=== PATIENT | male | born 1950 | race Two or more races ===

== ENCOUNTER 2025-07-11 23:27 | Inpatient (IN) | payer OTHER, SELFPAY ==
--- NOTE | 2025-07-11 | ECG_ITS ---
Test Reason : CP Blood Pressure : */* mmHG Vent. Rate : 155 BPM Atrial Rate : * BPM P-R Int : * ms QRS Dur : 74 ms QT Int : 290 ms P-R-T Axes : * 40 151 degrees QTcB Int : [address] depression, consider subendocardial injury Nonspecific T wave abnormality Abnormal ECG No previous ECGs available Referred By: Generic ED Physician Electronically Signed By: Thang Yoo
[2025-07-11 23:33] VITALS: BP 120/84; BP 151/80; PULSE 155; PULSE 158; RESP 12; TEMP 36.8; O2SAT 97; O2SAT 98; BMI 49.4
[2025-07-11 23:54] LABS: MANUAL DIFF FLAG NO
[2025-07-11] MEDS: Adenosine 6 MG/2 ML VIAL IVPUSH (23:55)
[2025-07-11 23:56] LABS: Hematocrit 28.1 % (42.0-52.0); Hemoglobin 9.5 g/dl (14.0-18.0); Imm Gran Abs Auto 0.02 X10*3/uL (0.00-0.03); Imm Gran Pct Auto 0.4 % (0.0-0.4); Lymphocytes Absolute Auto 0.5 X10*3/uL (1.2-4.9); Mean Corpuscular HGB Conc 33.8 g/dl (31.0-36.0); Mean Corpuscular Hemoglobin 29.4 pg (27.0-33.0); Mean Corpuscular Volume 87.0 fL (80.0-98.0); NRBC Abs Auto 0.000 X10*3/uL (0.0-0.012); NRBC Pct Auto 0.0 /100WBC (0.0-0.2); Platelet Count 121 X10*3/uL (160-400); Red Blood Count 3.23 X10*6/uL (4.60-5.80); White Blood Count 5.5 X10*3/uL (4.8-10.8)
[2025-07-12] VITALS (20 sets, daily range): BP systolic 108–152; BP diastolic 22–79; PULSE 49–148; RESP 16–20; TEMP 36.4–36.9; O2SAT 97–100; BMI 22.1; BMI 21.7
[2025-07-12] LABS: INTERNATIONAL NORM RATIO 1.0 (0.9-1.1); Prothrombin Time 11.5 SEC (10.9-12.4)
--- NOTE | 2025-07-12 | ECG_ITS ---
Test Reason : repeat Blood Pressure : */* mmHG Vent. Rate : 79 BPM Atrial Rate : 79 BPM P-R Int : 158 ms QRS Dur : 80 ms QT Int : 398 ms P-R-T Axes : -10 3 -24 degrees QTcB Int : 456 ms Normal sinus rhythm Normal ECG When compared with ECG of 12-Jul-2025 03:53, Non-specific change in ST segment in Inferior leads T wave inversion now evident in Inferior leads Referred By: Todd Barrientos Electronically Signed By: PORTILLO PATEL MD
--- NOTE | 2025-07-12 | ECG_ITS ---
Test Reason : RHYTHM CHANGE Blood Pressure : */* mmHG Vent. Rate : 75 BPM Atrial Rate : 75 BPM P-R Int : 158 ms QRS Dur : 80 ms QT Int : 402 ms P-R-T Axes : 61 46 79 degrees QTcB Int : 448 ms Normal sinus rhythm Normal ECG When compared with ECG of 12-Jul-2025 00:34, Sinus rhythm has replaced Atrial flutter Non-specific change in ST segment in Inferior leads Referred By: Evi Trinh Electronically Signed By: Thang Yoo
[2025-07-12 00:15] LABS: Calcium 9.2 mg/dL (8.4-10.2)
[2025-07-12 00:16] LABS: Alanine Aminotransferase 29 U/L (0-40); Albumin Level 4.5 g/dL (3.5-5.0); Alkaline Phosphatase 164 U/L (39-117); Anion Gap 16 (12-20); Aspartate Amino Transferase 30 U/L (5-37); B Type Natriuretic Peptide 252 pg/mL (<100); Blood Urea Nitrogen 26 mg/dL (9-16); Carbon Dioxide 22 mmol/L (22-29); Chloride 106 mmol/L (96-108); Creatinine Clr Calc Pharmacy 86.2; Estimated Glomerular Filt Rate > 60; Potassium 4.6 mmol/L (3.3-5.1); Sodium 139 mmol/L (135-145); Total Protein 7.5 g/dL (6.5-8.0)
[2025-07-12 00:18] LABS: Troponin-I High Sensitivity 61.4 ng/L (<3.5-35.0)
--- NOTE | 2025-07-12 00:31 | ECG_ITS ---
Test Reason : SVT Blood Pressure : */* mmHG Vent. Rate : 73 BPM Atrial Rate : 288 BPM P-R Int : * ms QRS Dur : 72 ms QT Int : 412 ms P-R-T Axes : 259 38 82 degrees QTcB Int : 453 ms Atrial flutter with 4:1 A-V conduction Abnormal ECG When compared with ECG of 11-Jul-2025 23:36, Atrial flutter has replaced Sinus rhythm Vent. rate has decreased by [address] no longer depressed in Lateral leads Nonspecific T wave abnormality no longer evident in Lateral leads Referred By: Marek Calles Electronically Signed By: Thang Yoo
--- NOTE | 2025-07-12 00:55 | ED.ARRPALP ---
HPI - Arrhythmia/Palpitations General Chief Complaint: Arrhythmia/Palpitations Stated Complaint: Chestpain Time Seen by Provider: 07/11/25 23:59 Source: patient and EMS Mode of arrival: EMS Limitations: no limitations History of Present Illness ED Provider: Marek DIAZ HPI narrative: The patient is a 75-year-old male presenting to the ED via EMS for evaluation of chest pain radiating to left arm which began this morning. Patient reports associated shortness of breath and racing heart sensation. Patient reports he recently was seen by Cardiology for chest pain occurring intermittently when taking his diabetes medication, patient was given nitroglycerin and recommended for a stress test which has not yet occurred. The patient reports when pain began today he took nitroglycerin without relief, when symptoms did not improve with nitroglycerin he presented to the ED for evaluation. The patient denies associated fever/chills, nausea, vomiting, abdominal pain, pleurisy, or cough. The patient denies any recent sick contacts or trauma. Patient denies history of atrial fibrillation or previous [place]. The patient was found by EMS to have a heart rate in the 150s, however no interventions were attempted by EMS as they were unable to establish IV access. The patient arrived to the ED with heart rate 155, complaining of active chest pain radiating to the left arm. Related Data Allergies Allergy/AdvReac Type Severity Reaction Status Date / Time No Known Allergies Allergy Verified 07/11/25 23:45 Review of Systems Review of Systems: Yes all other systems are reviewed and are negative PMFSH Social History Social History Advance Directives: No Advance Directives Information Provided: Yes Do you have a plan to hurt others: No Plan Physical Exam Vital Signs: Vital Signs: Last Vital Signs Temp 98.2 F 07/12/25 01:55 Pulse 88 07/12/25 01:55 Resp 18 07/12/25 01:55 BP 129/48 L 07/12/25 01:55 Pulse Ox 100 07/12/25 01:55 O2 Del Method Room Air 07/12/25 01:55 BMI result Body Mass Index 22.1 CONSTITUTIONAL: The patient appears mildly anxious, otherwise non-toxic, well nourished and in no acute distress. Vital signs as documented. HEAD: Atraumatic, normocephalic. EYES: EOMs grossly intact, pupils equal, conjunctiva clear, no exudate. ENT: Nares patent, no discharge. Airway patent, no audible stridor, visible mucosa is pink and moist without noted lesions. NECK: Trachea is midline, no obvious masses or gross abnormalities. CHEST: Symmetric movement, normal appearance. LUNGS: LS present and CTAB, no w/r/r. Non-labored work of breathing. CARDIAC: Rapid but otherwise Regular Rhythm, S1/S2 appreciated, no murmurs, rubs or gallops. ABDOMEN: Abdomen soft and non-tender x4 quadrants, no palpable masses or organomegaly. : Deferred. EXTREMITIES: Normal tone, moves all extremities spontaneously without reported pain. No obvious acute injury or deformity noted. NEURO: Alert and oriented x3, CN II-XII appear grossly intact. Cerebellar Functioning grossly intact. No obvious sensory or motor deficits. Speech clear and appropriate. PSYCH: normal affect, appropriate eye contact, fluid speech, with appropriate response to questioning. No reported suicidality or homicidality. SKIN: Warm, dry, color appropriate, normal turgor. No rashes noted. Medications Administered Discontinued Medications Generic Name Dose Route Start Last Admin Trade Name Freq PRN Reason Stop Dose Admin Adenosine 6 mg 07/12/25 00:03 07/11/25 23:55 Adenosine 6 Mg/2 Ml Vial IVPUSH 07/12/25 00:04 6 mg ONCE ONE Administration Diltiazem HCl 17 mg 07/12/25 00:04 07/12/25 00:07 Diltiazem Hcl 50 Mg/10 Ml Vial IVPUSH 07/12/25 00:05 17 mg ONCE ONE Administration Sodium Chloride 1,000 mls @ 999 mls/hr 07/12/25 00:15 07/12/25 01:56 Ns IV 07/12/25 01:15 Infused .Q1H1M JESUS Infusion Medical Decision Making Medical Decision Making MDM Narrative: 1:01 AM 07/12/2025 (Faith DIAZ): The patient is a 75-year-old male presenting to the ED via EMS for evaluation of chest pain radiating to left arm which began this morning. Patient reports associated shortness of breath and racing heart sensation. Patient reports he recently was seen by Cardiology for chest pain occurring intermittently when taking his diabetes medication, patient was given nitroglycerin and recommended for a stress test which has not yet occurred. The patient reports when pain began today he took nitroglycerin without relief, when symptoms did not improve with nitroglycerin he presented to the ED for evaluation. The patient denies associated fever/chills, nausea, vomiting, abdominal pain, pleurisy, or cough. The patient denies any recent sick contacts or trauma. Patient denies history of atrial fibrillation or previous [place]. The patient was found by EMS to have a heart rate in the 150s, however no interventions were attempted by EMS as they were unable to establish IV access. The patient arrived to the ED with heart rate 155, complaining of active chest pain radiating to the left arm. Upon arrival IV access was established, patient provided IV fluid bolus, and patient was placed on continuous 12 lead monitoring. 6 mg adenosine was administered with continuous EKG tracing revealing atrial flutter, shortly after adenosine patient's heart rate returned to 150s. Patient was then treated with 0.25 mg/kg of Cardizem with good effect, heart rate became a flutter with rate control at a rate of 77 with patient reporting resolution of chest pain. Repeat EKG with rate control reveals no evidence of ischemia. Patient's blood pressure was stable throughout. Laboratory evaluation shows no leukocytosis, there is [id number] anemia with a H&H 9.5 and 28.1, does not meet transfusion threshold. CMP shows elevated BUN of 26, creatinine 1.08, no electrolyte abnormalities. Glucose is elevated at 432. Patient's troponin is 61.4, we will trend with repeat at 02:00. Patient's elevated troponin is likely type 2 demand ischemia. Pending no significant increase in troponin and no recurrence of pain, patient will be admitted for new onset a flutter with RVR. 2:46 AM 07/12/2025 (Faith DIAZ): Patient's repeat troponin is 88, does not meet delta troponin change criteria, patient remains chest pain-free, and as discussed above repeat EKG was nonischemic. The patient will be admitted for new onset a flutter with RVR. Admission/Observation Consideration of admission/observation: Escalation of care including admission/observation considered Consult Healthcare Provider Management of the patient was discussed with: Hospitalist Lab Data MDM Lab Attestation statement: I reviewed the patient's lab results. 07/11/25 23:48 07/11/25 23:48 Labs: Lab Results 07/11/25 07/12/25 Range/Units 23:48 02:00 WBC 5.5 (4.8-10.8) X10*3/uL RBC 3.23 L (4.60-5.80) X10*6/uL Hgb 9.5 L (14.0-18.0) g/dl Hct 28.1 L (42.0-52.0) % MCV 87.0 (80.0-98.0) fL MCH 29.4 (27.0-33.0) pg MCHC 33.8 (31.0-36.0) g/dl RDW 15.9 (11.0-16.0) % Plt Count 121 L (160-400) X10*3/uL MPV 11.8 (9.4-12.4) fL Immature Gran % (Auto) 0.4 (0.0-0.4) % Neut % (Auto) 80.6 H (45-73) % Lymph % (Auto) 8.2 L (20-40) % [place] % (Auto) 7.3 (2-11) % Eos % (Auto) 3.1 (0-4) % Baso % (Auto) 0.4 (0-2) % Lymph # (Auto) 0.5 L (1.2-4.9) X10*3/uL [place] # (Auto) 0.4 (0.1-1.2) X10*3/uL Eos # (Auto) 0.2 (0.0-0.4) X10*3/uL Baso # (Auto) 0.0 (0.0-0.2) X10*3/uL Abs Immat Gran (auto) 0.02 (0.00-0.03) X10*3/uL Absolute Neuts (auto) 4.4 (2.0-8.3) x10*3/uL Absolute Nucleated RBC 0.000 (0.0-0.012) X10*3/uL Nucleated RBC % (auto) 0.0 (0.0-0.2) /100WBC PT 11.5 (10.9-12.4) SEC INR 1.0 (0.9-1.1) Sodium 139 (135-145) mmol/L Potassium 4.6 (3.3-5.1) mmol/L Chloride 106 (96-108) mmol/L Carbon Dioxide 22 (22-29) mmol/L Anion Gap 16 (12-20) BUN 26 H (9-16) mg/dL Creatinine 1.08 (0.5-1.4) mg/dL Estim Creat Clear Calc 86.2 Estimated GFR > 60 Random Glucose 432 H* (60-115) mg/dL Calcium 9.2 (8.4-10.2) mg/dL Total Bilirubin 0.3 (0.0-1.0) mg/dL Direct Bilirubin 0.1 (0.0-0.5) mg/dL AST 30 (5-37) U/L ALT 29 (0-40) U/L Alkaline Phosphatase 164 H (39-117) U/L Troponin I High Sens 61.4 H 88.0 H (<3.5-35.0) ng/L B-Natriuretic Peptide 252 H (<100) pg/mL Total Protein 7.5 (6.5-8.0) g/dL Albumin 4.5 (3.5-5.0) g/dL Independent Interpretation I performed an independent interpretation of an: EKG (EKG shows SVT with a rate of 155 with nonspecific T-wave abnormality and sub mm lateral ST-depressions. No ectopy, QTC 465. No old for comparison) Interpretation: Repeat EKG at 00:34 hours demonstrates atrial flutter with 4-1 AV conduction with a rate of 73, no evidence of acute ischemia, no ST elevation, no ectopy. QTC 453. Compared to previous there is resolution of SVT and previously noted lateral ST depressions. Independent Historian Clinical information obtained from an independent historian. History obtained from or confirmed by: Spouse External Record Review External record reviewed: Outpatient record Discharge Plan Discharge Clinical Impression: Palpitations Atrial flutter Qualifiers: Atrial flutter type: unspecified Qualified Code(s): I48.92 - Unspecified atrial flutter Patient Disposition: Admitted As Inpatient Print Language: Nicaraguan
[2025-07-12 02:31] LABS: Troponin-I High Sensitivity 88.0 ng/L (<3.5-35.0)
--- NOTE | 2025-07-12 03:08 | PM.IMHP ---
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 Patient had been seen by Cardiology as an outpatient in the recent past for ongoing angina. Patient had a prescription for nitroglycerin and attempted to use medication sublingually with no improvement in symptoms. 911 was called. When EMS arrived patient had heart rate in the 150s and EMS was unable to provide any intervention due to poor IV access. Upon arrival to the ED, patient's heart rate was 155 and patient was alert and orientated but complaining of active chest pain with again radiation to left arm. Initial EKG had evidence of supraventricular tachycardia. Patient received initially 6 mg of adenosine, but patient's heart rate then a flutter in the 150s. Patient was then given 0.25 milligrams/kilogram a Cardizem or 17 mg with good effect. Patient's rate became controlled. Patient's chest pain also resolved. Upon admission, patient is currently in normal sinus rhythm with a heart rate of 88. EKG without ischemic changes. Troponin 61.4 than 88. BNP elevated at 252. Blood glucose on arrival 432 mg/dL. Patient does have a mild systolic murmur on exam. Echocardiogram is pending. Patient resting comfortably with no complaints. Patient is planned for an outpatient stress test in the near future. Patient admitted for new onset a flutter RVR, currently in normal sinus rhythm and angina with evidence of chronic anemia. Review of Systems Review of Systems: Currently patient denies any chest pain, shortness breath at rest or with exertion. Patient is not having any abdominal pain, nausea, vomiting or diarrhea. Patient denies chronic issues with constipation. Patient does not smoke currently. Patient is not using any illicit drugs or marijuana. Patient does not use alcohol regularly. Patient does report intermittent weakness and does require some help with showering and certain activities of daily life. Patient lives with his and she is very supportive. Patient no longer drives. [facility] Medical History Anemia Pneumothorax Diabetes 1.5, managed as type 2 Substance use disorder HIV (human immunodeficiency virus infection) Cognitive capacity: Alert and orientated x3 Functional capacity: independent ambulation Surgical History H/O bilateral inguinal hernia repair Social History Advance Directives: No Advance Directives Information Provided: Yes Do you have a plan to hurt others: No Plan Ebola Risk: Travel/Contact With Anyone From Affected Area/s: No Has Patient Experienced Ebola Symptoms: No Meds Allergies Allergy/AdvReac Type Severity Reaction Status Date / Time No Known Allergies Allergy Verified 07/11/25 23:45 Active Medications: Current Medications Acetaminophen (Acetaminophen 325 Mg Tablet) 650 mg PO Q6H PRN PRN Reason: Pain, Mild 1-3,fever,headache Albuterol/Ipratropium (Albuterol/Iprat 2.5/0.5mg 3 Ml Ampul.Neb) 3 ml INHALE Q4H PRN PRN Reason: Shortness of Breath/Wheezing Calcium Carbonate (Calcium Carbonate 750 Mg Tab.Chew) 750 mg PO Q4H PRN PRN Reason: Heartburn Magnesium Hydroxide (Milk Of Magnesia 30 Ml Oral.Susp) 30 ml PO DAILY PRN PRN Reason: Constipation Melatonin (Melatonin 3 Mg Tablet) 6 mg PO BEDTIME PRN PRN Reason: Insomnia Ondansetron HCl (Ondansetron Hcl 4 Mg/2 Ml Vial) 4 mg IVPUSH Q8H PRN PRN Reason: Nausea and Vomiting Polyethylene Glycol (Polyethylene Glycol 3350 17 Gm Powd.Pack) 17 gm PO DAILY PRN PRN Reason: Constipation Senna (Sennosides 8.6 Mg Tablet) 17.2 mg PO BEDTIME JESUS Sodium Chloride (0.9 % Sodium Chloride Flush 3 Ml Syringe) 3 ml IVFLUSH QSHIFT JESUS Physical Exam Vital Signs and Narrative: Vital Signs: Last Vital Signs Temp 98.2 F 07/12/25 01:55 Pulse 88 07/12/25 01:55 Resp 18 07/12/25 01:55 BP 129/48 L 07/12/25 01:55 Pulse Ox 100 07/12/25 01:55 O2 Del Method Room Air 07/12/25 01:55 BMI result Body Mass Index 22.1 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 Neuro: CN II-X11 intact, no deficits, visual acuity intact EYES: PERRLA, EOM intact, sclerae nonicteric, conjunctiva pink ENT: hearing intact, no issues with swallowing, uvula midline, lips moist, nares patent no epistaxis Cardiac: S1 S2 RRR, faint systolic murmur, no JVD, no edema in Lower ext Pulmonary: lungs clear to auscultation bilaterally Abdominal: BS active in all 4 quadrants, no guarding, tenderness, rebounding lower abdominal scar present MSK: strength 4/5 upper and lower extremities : no CVA tenderness no bladder distension Extremities: no edema in lower extremities, PT and DP pulses palpable +2 Psych: mood stable, judgement and insight good Skin: Intact, no new rashes or lesions Results Labs 07/11/25 23:48 07/11/25 23:48 Labs: Laboratory Results - last 24 hr 07/11/25 23:48 MCV 87.0 MCH 29.4 MCHC 33.8 RDW 15.9 Plt Count 121 L MPV 11.8 Immature Gran % (Auto) 0.4 Neut % (Auto) 80.6 H Lymph % (Auto) 8.2 L [place] % (Auto) 7.3 Eos % (Auto) 3.1 Baso % (Auto) 0.4 Lymph # (Auto) 0.5 L [place] # (Auto) 0.4 Eos # (Auto) 0.2 Baso # (Auto) 0.0 Abs Immat Gran (auto) 0.02 Absolute Neuts (auto) 4.4 Absolute Nucleated RBC 0.000 Nucleated RBC % (auto) 0.0 PT 11.5 INR 1.0 Anion Gap 16 Estim Creat Clear Calc 86.2 Estimated GFR > 60 Random Glucose 432 H* Calcium 9.2 Total Bilirubin 0.3 Direct Bilirubin 0.1 AST 30 ALT 29 Alkaline Phosphatase 164 H B-Natriuretic Peptide 252 H Total Protein 7.5 Albumin 4.5 ECG Attestation: I personally reviewed and interpreted this ECG as follows: (A flutter with 4-1 AV conduction, ST no longer depressed in lateral leads) Prior ECG tracings: available for review Assessment and Plan (1) Atrial flutter: Qualifiers: Atrial flutter type: unspecified Qualified Code(s): I48.92 - Unspecified atrial flutter Status: Acute Plan 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 Patient diagnosed with new onset a flutter RVR. Patient was treated in the emergency room with Cardizem IV and now converted to sinus rhythm. Patient also has noted anemia not requiring transfusion. Patient also has known diabetes currently insulin-dependent. A flutter RVR, new onset Patient received adenosine initially 6 mg as EKG interpreted as SVT Patient then received 17 mg of Cardizem IV and a flutter rate controlled Patient now in sinus rhythm, EKG requested Cardiology consulted Echocardiogram ordered - note mild systolic murmur on exam CHAdVas score 4 Lovenox weight based x1, aware platelets are 121 Troponins trending 61.4, 88 - continue to trend until peak level noted, likely demand ischemia Cardizem 30 mg q.6 currently ordered Telemetry Patient recently seen by Cardiology as an outpatient had plan for an outpatient stress test not yet completed Elevated BNP Echo pending No known history of heart failure Patient presents euvolemic No evidence of hypoxia, lung sounds clear Daily weight, low-sodium diet, measure I's and O's Angina No further angina since patient's rate was reduced Patient currently in normal sinus rhythm with no chest pain NTG prn Anemia (no previous labs for comparison) No indication for transfusion at this time We will check iron stores, vitamin B12 Trend CBC Thrombocytopenia No issues with spontaneous bleeding, bruising Patient denies any chronic liver history and denies history of hepatitis PLTs 121K, trend IDDM SSI Diabetic Diet HIV Await med rec as patient states he currently takes medication and is undetected No history of hepatitis-B or C Patient denies any current symptoms of infection including burning or pain on urination, open wounds, fever History of substance use disorder Patient no longer on methadone Patient denies active use of illicit drugs Noting patient has been having chest pain, we will check toxicology screen DVT prophylaxis: Lovenox weight based x1 noting a flutter Med rec pending Full Code status Quality Stroke Does the patient have a stroke diagnosis?: No Reason for No Anti-thrombotic by Day Two: N/A - Med Ordered VTE Prior VTE?: No VTE Risk Level:: Medical - moderate - high VTE Device Contraindication: N/A - Device Ordered VTE Drug Contraindication: N/A - Med Ordered
[2025-07-12 03:33] LABS: Magnesium 1.9 mg/dL (1.6-2.6)
[2025-07-12 03:36] LABS: Appearance Urine Clear; Glucose Urine UA >=1000 mg/dL (Negative); PH 5.5 (5.0-9.0); Specific Gravity - Urine 1.025 (1.005-1.025); UMIC TRIGGER UA YES
[2025-07-12 03:48] LABS: Free T4 (Free Thyroxine) 1.13 ng/dL (0.71-1.85); Thyroid Stimulating Hormone 3.18 uIU/mL (0.32-4.0)
--- NOTE | 2025-07-12 04:00 | PC.NURSE ---
late entry, pt brought in biba due to chest pain, pt in SVT with HR over 150, provider at bedside, EKG done, pt given adenosine and quick conversion to 60-80 HR, returned to 150 and 17 mL of Diltiazem given, HR stable at 80. multiple HR entered to vitals.
[2025-07-12 05:49] LABS: Hematocrit 26.0 % (42.0-52.0); Hemoglobin 8.4 g/dl (14.0-18.0); Mean Corpuscular HGB Conc 32.3 g/dl (31.0-36.0); Mean Corpuscular Hemoglobin 28.7 pg (27.0-33.0); Mean Corpuscular Volume 88.7 fL (80.0-98.0); NRBC Abs Auto 0.000 X10*3/uL (0.0-0.012); NRBC Pct Auto 0.0 /100WBC (0.0-0.2); Red Blood Count 2.93 X10*6/uL (4.60-5.80); White Blood Count 4.0 X10*3/uL (4.8-10.8)
[2025-07-12 05:57] LABS: Platelet Count 94 X10*3/uL (160-400)
[2025-07-12 06:01] LABS: Anion Gap 11 (12-20); Blood Urea Nitrogen 23 mg/dL (9-16); Calcium 8.5 mg/dL (8.4-10.2); Carbon Dioxide 23 mmol/L (22-29); Chloride 111 mmol/L (96-108); Creatinine Clr Calc Pharmacy 64.6; Estimated Glomerular Filt Rate > 60; Potassium 4.2 mmol/L (3.3-5.1); Sodium 141 mmol/L (135-145)
--- NOTE | 2025-07-12 06:40 | PC.NURSE ---
pt resting, HR stable, respirations even and unlabored.
--- NOTE | 2025-07-12 07:00 | CA_ITS ---
Transthoracic Echocardiogram Patient (Last, First, Middle): Ed Moreira Luis Gender: M Date of : 1950 Age: 75 Procedure Date: 07/12/2025 Procedure Type: Transthoracic Echocardiogram Location: ER Height: 175.26 cm Weight: 68.04 kg BSA: 1.83 m2 Heart Rate: bpm BP: 127 / 45 mmHg Data Solutions Architect: ALEE Referring MD: Evi Trinh TANYARD WORKER- Symptoms: new onset Aflutter RVR, chest pain Study Quality: Adequate ECG Rhythm: Sinus Conclusions: - Normal left ventricular cavity size. There is mildly increased left ventricular wall thickness. The left ventricular systolic function is hyperdynamic. The visually estimated ejection fraction is >70%. - GEMA and dynamic LVOT obstruction, post valsalva gradient 94 mm Hg. - There is mild to moderate aortic valve stenosis. Findings Left Ventricle Normal left ventricular cavity size. There is mildly increased left ventricular wall thickness. The left ventricular systolic function is hyperdynamic. The visually estimated ejection fraction is >70%. There is no evidence of regional wall motion abnormalities. Abnormal diastolic function is noted. Spectral Doppler is indicative of an impaired relaxation filling pattern. Elevated filling pressures. Right Ventricle Normal right ventricular cavity size and systolic function. Atria The left atrium is mildly dilated. The right atrium is mildly dilated. Aortic Valve There is moderate calcification of the aortic valve. There is mild to moderate aortic valve stenosis. The peak aortic velocity is 2.99 m/s. The mean gradient is 19 mmHg. The aortic valve area is 1.64 cm2. There is no aortic valve regurgitation. Mitral Valve The mitral valve appears normal. There is moderate mitral annular calcification. There is mild mitral valve regurgitation. There is no mitral valve stenosis. Pulmonic Valve The pulmonic valve is likely normal. Tricuspid Valve Normal tricuspid valve structure. There is mild tricuspid valve regurgitation. The right ventricular systolic pressure is 35 mmHg. Normal right atrial pressure. Mild pulmonary hypertension is present. Great Vessels All visible segments of the aorta are normal in size. Venous The inferior vena cava is normal in size and collapses greater than 50% with inspiration. Pericardium/Pleural There is no evidence of pericardial effusion. Prior Study Comparison No prior study available for comparison. Measurements 2D Linear Measurements IVSd: 1.26 0.6-0.9/0.6-1.0 cm LVIDd: 3.45 3.9-5.3/4.2-5.9 cm LVIDd Index: 1.89 2.4-3.2/2.2-3.1 cm/m2 LVIDs: 2.19 2.0-3.6 cm LVPWd: 1.27 0.7-1.1 cm Ao Root: 2.80 2.1-3.5 cm LA Diam: 3.90 2.7-3.8/3.0-4.0 cm LAIDs Index: 2.13 1.5-2.3 cm/m2 LV Mass: 179.69 67-162/88-224 g LV Mass Index: 98.19 43-95/49-115 g/m2 LVOT Diam: 2.00 3.0+(-)1.3 cm Mitral Valve MV VTI: 0.50 MV Pk Hema: 1.65 MV Mn Hema: 1.06 MV Pk Grad: 11.00 MV Mn Grad: 5.00 MV Pk E: 1.51 MV PK A: 1.74 MV Decel Time: 255.00 E/A: 0.90 E'Lateral: 5.33 E'Medial: 6.09 E/E' Med: 24.80 E/E' Lat: 28.30 PHT: 75.00 MVA PHT: 2.93 MVA Continuity: 2.19 Decel Mcdonough: 5.94 Aortic Valve AoV Pk Hema: 2.99 AoV Mn Hema: 1.96 AoV VTI: 0.67 AoV Pk Grad: 36.00 Aov Mn Grad: 19.00 HUMERA Cont.VTI: 1.64 LVOT LVOT Pk Hema: 1.53 LVOT Mn Hema: 1.06 LVOT VTI: 0.35 LVOT Pk Grad: 9.00 LVOT Mn Grad: 6.00 LVOT Diam: 2.00 LVOT Area: 3.14 Diastolic Function MV Pk E: 1.51 MV Pk A: 1.74 E/A: 0.90 E'Medial: 6.09 E/E' Med: 24.80 E' Laterial: 5.33 E/E' Lat: 28.30 Right Ventricle TAPSE (mm): 27.00 TVS' Hema: 14.00 Tricuspid Valve TR Pk Hema: 2.83 TR Pk Grad: 32.00 RA Press: 3.00 RVSP: 35.00 Great Vessels Aorta Ao Root-2D: 2.80 2.0-3.7 cm Ao Asc: 3.10 2.1-3.4 cm Pulmonary Valve PV Pk Hema: 1.10 Peak PV Grad: 5.00 Updated in Other Vendor System with Status of Final Thang Yoo MD electronically signed on 07/12/2025 6:21:44 PM with status of Final
[2025-07-12 07:13] LABS: Glucose, Whole Blood 193 mg/dL (60-115)
--- NOTE | 2025-07-12 07:47 | PC.NURSE ---
Assumed care of patient. Pt is calm, cooperative, resting. Pt denies any pain or discomfort at this time. Pt denies CP or SOB, rr even and unlabored. Pt feeling better since cardioversion, normal sinus on monitor.
[2025-07-12 07:54] LABS: Hemoglobin A1C 148.1012 umol/L; Total Hemoglobin (HGBA1C) 2287.1977 umol/L
[2025-07-12] MEDS: 0.9 % Sodium Chloride Flush 3 ML SYRINGE IVFLUSH ×2 (08:11→16:52)
--- NOTE | 2025-07-12 08:35 | PHA.MEDREC ---
Pharmacy Consult ? Medication Reconciliation Pharmacy has completed the medication reconciliation. Spoke with pt at bedside with swimming pool service technician services, he was able to tell us his medications when prompted.
--- NOTE | 2025-07-12 08:48 | P.PNIM_ITS ---
Subjective Subjective Date of Service: 07/12/25 Interval History: aflutter ,chest pain Review of Systems chest pain seems improved , has shoulder pain denies any gross bleeding Review of Systems: Yes all other systems are reviewed and are negative Physical Exam 2 Exam: Exam: Appearance: Alert.? Oriented X3.? cvs: rrr, [id number] . res: clear to auscultation ,no rhonchii or wheezing abd: no rebound or guarding ,nt, bs present. ext pulses present , no cyanosis . neuro: axo3 , nonfocal. Vital Signs: Vital Signs: Last Vital Signs Temp 98.2 F 07/12/25 01:55 Pulse 81 07/12/25 08:11 Resp 16 07/12/25 08:09 BP 145/61 H 07/12/25 08:11 Pulse Ox 98 07/12/25 08:09 O2 Del Method Room Air 07/12/25 08:09 BMI result Body Mass Index 22.1 Objective Data Active Medications Acetaminophen (Acetaminophen 325 Mg Tablet) 650 mg PO Q6H PRN PRN Reason: Pain, Mild 1-3,fever,headache Albuterol/Ipratropium (Albuterol/Iprat 2.5/0.5mg 3 Ml Ampul.Neb) 3 ml INHALE Q4H PRN PRN Reason: Shortness of Breath/Wheezing Calcium Carbonate (Calcium Carbonate 750 Mg Tab.Chew) 750 mg PO Q4H PRN PRN Reason: Heartburn Dextrose (Dextrose 50 % 25 Gm/50 Ml Syringe) 25 gm IVPUSH Q15M PRN; Protocol PRN Reason: per Hypoglycemia Standing Ord. Diltiazem HCl (Diltiazem Hcl 30 Mg Tablet) 30 mg PO QID [facility]; Protocol Last Admin: 07/12/25 08:11 Dose: 30 mg Documented By: YANET Glucose (Glucose Gel 15 Gm Gel..Gram.) 15 gm PO Q15M PRN; Protocol PRN Reason: per Hypoglycemia Standing Ord. Insulin Human Lispro (Insulin Lispro 100 Unit/Ml 3 Ml Vial) 0 unit SUBCUT QIDACHS [facility]; Protocol Last Admin: 07/12/25 07:12 Dose: Not Given Documented By: KRISTAN Non-Admin Reason: Patient Refused Magnesium Hydroxide (Milk Of Magnesia 30 Ml Oral.Susp) 30 ml PO DAILY PRN PRN Reason: Constipation Melatonin (Melatonin 3 Mg Tablet) 6 mg PO BEDTIME PRN PRN Reason: Insomnia Ondansetron HCl (Ondansetron Hcl 4 Mg/2 Ml Vial) 4 mg IVPUSH Q8H PRN PRN Reason: Nausea and Vomiting Polyethylene Glycol (Polyethylene Glycol 3350 17 Gm Powd.Pack) 17 gm PO DAILY PRN PRN Reason: Constipation Senna (Sennosides 8.6 Mg Tablet) 17.2 mg PO BEDTIME JESUS Sodium Chloride (0.9 % Sodium Chloride Flush 3 Ml Syringe) 3 ml IVFLUSH QSHIFT JESUS Last Admin: 07/12/25 08:11 Dose: 3 ml Documented By: YANET Labs 07/12/25 04:58 07/12/25 04:58 Labs: Laboratory Results - last 24 hr 07/11/25 07/12/25 07/12/25 23:48 03:30 04:58 MCV 87.0 88.7 MCH 29.4 28.7 MCHC 33.8 32.3 RDW 15.9 15.8 Plt Count 121 L 94 L MPV 11.8 12.2 Immature Gran % (Auto) 0.4 0.5 H Neut % (Auto) 80.6 H 73.5 H Lymph % (Auto) 8.2 L 12.9 L [place] % (Auto) 7.3 8.8 Eos % (Auto) 3.1 3.8 Baso % (Auto) 0.4 0.5 Lymph # (Auto) 0.5 L 0.5 L [place] # (Auto) 0.4 0.4 Eos # (Auto) 0.2 0.2 Baso # (Auto) 0.0 0.0 Abs Immat Gran (auto) 0.02 0.02 Absolute Neuts (auto) 4.4 2.9 Absolute Nucleated RBC 0.000 0.000 Nucleated RBC % (auto) 0.0 0.0 PT 11.5 INR 1.0 Anion Gap 16 11 L Estim Creat Clear Calc 86.2 64.6 Estimated GFR > 60 > 60 POC Glucose Random Glucose 432 H* 222 H Estimat Average Glucose 186 Hemoglobin A1c % 8.1 H Calcium 9.2 8.5 D Magnesium 1.9 Total Bilirubin 0.3 Direct Bilirubin 0.1 AST 30 ALT 29 Alkaline Phosphatase 164 H B-Natriuretic Peptide 252 H Total Protein 7.5 Albumin 4.5 TSH 3.18 Free T4 1.13 Urine Color Yellow Urine Appearance Clear Urine pH 5.5 Ur Specific [place] 1.025 Urine Protein Trace Urine Glucose (UA) >=1000 H Urine Ketones Trace Urine Blood Negative Urine Nitrite Negative Ur Leukocyte Esterase Negative Urine RBC 0-2 Urine WBC 0-5 Ur Squamous Epith Cells 0-2 Urine Bacteria None Seen Hyaline Casts 0-2 07/12/25 07:06 MCV MCH MCHC RDW Plt Count MPV Immature Gran % (Auto) Neut % (Auto) Lymph % (Auto) [place] % (Auto) Eos % (Auto) Baso % (Auto) Lymph # (Auto) [place] # (Auto) Eos # (Auto) Baso # (Auto) Abs Immat Gran (auto) Absolute Neuts (auto) Absolute Nucleated RBC Nucleated RBC % (auto) PT INR Anion Gap Estim Creat Clear Calc Estimated GFR POC Glucose 193 H Random Glucose Estimat Average Glucose Hemoglobin A1c % Calcium Magnesium Total Bilirubin Direct Bilirubin AST ALT Alkaline Phosphatase B-Natriuretic Peptide Total Protein Albumin TSH Free T4 Urine Color Urine Appearance Urine pH Ur Specific [place] Urine Protein Urine Glucose (UA) Urine Ketones Urine Blood Urine Nitrite Ur Leukocyte Esterase Urine RBC Urine WBC Ur Squamous Epith Cells Urine Bacteria Hyaline Casts Assessment and Plan (1) Aortic stenosis: Status: Acute (2) Atrial flutter: Status: Acute Plan 75 yo male, Vietnamese-speaking only, with PMH DMII, HTN, HIV currently on medication with no detection, 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 Patient diagnosed with new onset a flutter RVR. Patient was treated in the emergency room with Cardizem IV and now converted to sinus rhythm. Patient also has noted anemia not requiring transfusion. Patient also has known diabetes currently insulin-dependent. Recent [facility] visit with GI: [facility] recoreds reecnt Gi note reviewed(Gi visit in 06/30):?75-year-old male following up for cirrhosis and screening?colonoscopy with significant past medical history for HIV/HCV coinfection status post SVR, demyelinating polyneuropathy, diabetes mellitus, GERD, esophageal varices, prostate cancer, tubular adenomatous polyps of the colon and other medical problems. Ed is well w/o complaint.??Denies acholic stools, dark-colored urine, pruritus, lower extremity edema, jaundice, scleral icterus, problems with his memory or acute episodes of confusion. ?Labs showing low Platelets. ?May,?EGD and Colonoscopy ([facility]) reported esophageal varices and portal hypertensive gastropathy in the stomach, TVA and TA polyps in the colon and recommendation to repeat both in one year.?Bowel movements regular without constipation, diarrhea.? Occasional?BRB attributed to hemorrhoids. his recent h/h 10.5/ ,platlets in 100 range A flutter RVR, new onset seems like reveerted back to nsr ,ekg added Echocardiogram ordered - note mild systolic murmur on exam CHAdVas score 4 Troponins trending 61.4, 88 - continue to trend until peak level noted, likely demand ischemia elevated bnp plan:tele chest pain seems to be improved Lovenox weight based x1, platelets tednsing down as well as h/h : will repeat cbc ,if platelets below 50 then avoid AC. Cardizem 30 mg q.6 currently ordered Patient recently seen by Cardiology as an outpatient had plan for an outpatient stress test not yet completed. cardio consult noted . pnacytopenia:? multifactorial ( hx of hiv ,?? liver dis ,ch thrombocytopenia) No issues with spontaneous bleeding, bruising PLTs 121-94 anemia workup added, added cbc repeat since h/h was 10.5 last month. IDDM SSI Diabetic Diet HIV home meds started. History of substance use disorder Patient no longer on methadone Patient denies active use of illicit drugs Noting patient has been having chest pain, urine toxicology positive for cocaine. DVT prophylaxis: Lovenox weight based x1 noting a flutter ongoing need for stay:chest pain workup/anemia workup-moniter cbc closely, as well as cardiology follwoup Quality Stroke Does the patient have a stroke diagnosis?: No Reason for No Anti-thrombotic by Day Two: N/A - Med Ordered VTE Prior VTE?: No VTE Risk Level:: Medical - moderate - high VTE Device Contraindication: N/A - Device Ordered VTE Drug Contraindication: N/A - Med Ordered
[2025-07-12 09:08] LABS: Reticulocytes Absolute 0.072 X10*6/uL (0.026-0.095)
[2025-07-12] MEDS: Insulin Glargine,Hum.rec.anlog 100 UNIT/ML 10 ML VIAL 20 UNIT SUBCUT (09:33)
[2025-07-12] MEDS: Brimonidine Tartrate 0.2% Oph 5 ML BOTTLE 1 DROP EYE-BOTH ×2 (09:51→20:43)
[2025-07-12 10:10] LABS: Iron 36 mcg/dL (45-160); Percent Iron Saturation 10 % (15-50); Total Iron Binding Capacity 364 mcg/dL (228-428); Unsaturated Iron Binding 328 ug/dL
[2025-07-12 10:34] LABS: Ferritin 21 ng/mL (20-250)
[2025-07-12 10:36] LABS: Folate 10.5 ng/mL (> or = 4.0); Vitamin B12 443 pg/mL (200-900)
--- NOTE | 2025-07-12 11:20 | P.CONCA_ITS ---
History of Present Illness History of Present Illness Date of Service: 07/12/25 Requesting physician: Todd Barrientos Chief complaint: Atrial Flutter w/ Rapid Ventricular Response Narrative: [age] year gentleman presenting with chest discomfort and atrial flutter. He has background history of HIV, diabetes and pancytopenia. Etiology of pancytopenia is unclear. He said he was experiencing pain in his chest left shoulder and back. He came to the emergency department has been noticed to be in atrial flutter. This was self-limiting and he converted to sinus rhythm. He is currently in sinus rhythm at this point. He gets hemorrhoidal bleeding but does not have any other GI blood loss history. As mentioned he has pancytopenia. There is also reported history of cirrhosis of liver. Currently comfortable and denying any symptoms. [facility] Past Medical History Medical History Anemia Pneumothorax Diabetes 1.5, managed as type 2 Substance use disorder HIV (human immunodeficiency virus infection) Surgical History Surgical History H/O bilateral inguinal hernia repair Social History Social History Patient Tobacco Use Status: Never used Tobacco Advance Directives: No Advance Directives Information Provided: Yes Do you have a plan to hurt others: No Plan Nutrition Risks: No Nutritional Risk Travel History Ebola Risk: Travel/Contact With Anyone From Affected Area/s: No Has Patient Experienced Ebola Symptoms: No Meds Allergies Allergy/AdvReac Type Severity Reaction Status Date / Time No Known Allergies Allergy Verified 07/11/25 23:45 Active Medications: Current Medications Abacavir Sulfate (Abacavir Sulfate 300 Mg Tablet) 600 mg PO DAILY REPLACED BY [facility] Last Admin: 07/12/25 11:07 Dose: 600 mg Acetaminophen (Acetaminophen 325 Mg Tablet) 650 mg PO Q6H PRN PRN Reason: Pain, Mild 1-3,fever,headache Albuterol/Ipratropium (Albuterol/Iprat 2.5/0.5mg 3 Ml Ampul.Neb) 3 ml INHALE Q4H PRN PRN Reason: Shortness of Breath/Wheezing Atorvastatin Calcium (Atorvastatin Calcium 10 Mg Tablet) 10 mg PO DAILY REPLACED BY [facility] Brimonidine Tartrate (Brimonidine Tartrate 0.2% Oph 5 Ml Bottle) 1 drop EYE- BOTH BID REPLACED BY [facility] Last Admin: 07/12/25 09:51 Dose: 1 drop Calcium Carbonate (Calcium Carbonate 750 Mg Tab.Chew) 750 mg PO Q4H PRN PRN Reason: Heartburn Dextrose (Dextrose 50 % 25 Gm/50 Ml Syringe) 25 gm IVPUSH Q15M PRN; Protocol PRN Reason: per Hypoglycemia Standing Ord. Diltiazem HCl (Diltiazem Hcl 30 Mg Tablet) 30 mg PO QID REPLACED BY [facility]; Protocol Last Admin: 07/12/25 08:11 Dose: 30 mg Dolutegravir Sodium (Dolutegravir Sodium 50 Mg Tablet) 50 mg PO DAILY REPLACED BY [facility] Last Admin: 07/12/25 11:06 Dose: 50 mg Ferrous Sulfate (Ferrous Sulfate 324 Mg Tablet.) 324 mg PO BID REPLACED BY [facility] Glucose (Glucose Gel 15 Gm Gel..Gram.) 15 gm PO Q15M PRN; Protocol PRN Reason: per Hypoglycemia Standing Ord. Hydrocortisone (Hydrocortisone 2.5 % Rectal Cr 30 Gm Tube) 1 appl TOPICAL DAILY REPLACED BY [facility] Last Admin: 07/12/25 09:51 Dose: Not Given Insulin Glargine (Insulin Glargine,Hum.Rec.Anlog 100 Unit/Ml 10 Ml Vial) 20 unit SUBCUT DAILY REPLACED BY [facility] Last Admin: 07/12/25 09:33 Dose: 20 unit Insulin Human Lispro (Insulin Lispro 100 Unit/Ml 3 Ml Vial) 0 unit SUBCUT QIDACHS REPLACED BY [facility]; Protocol Last Admin: 07/12/25 07:12 Dose: Not Given Lamivudine (Lamivudine 150 Mg Tablet) 300 mg PO DAILY REPLACED BY [facility] Last Admin: 07/12/25 11:06 Dose: 300 mg Lisinopril (Lisinopril 40 Mg Tablet) 40 mg PO DAILY REPLACED BY [facility]; Protocol Last Admin: 07/12/25 09:31 Dose: 40 mg Magnesium Hydroxide (Milk Of Magnesia 30 Ml Oral.Susp) 30 ml PO DAILY PRN PRN Reason: Constipation Melatonin (Melatonin 3 Mg Tablet) 6 mg PO BEDTIME PRN PRN Reason: Insomnia Omeprazole (Omeprazole 20 Mg Capsule.) 20 mg PO DAILY REPLACED BY [facility] Last Admin: 07/12/25 09:31 Dose: 20 mg Ondansetron HCl (Ondansetron Hcl 4 Mg/2 Ml Vial) 4 mg IVPUSH Q8H PRN PRN Reason: Nausea and Vomiting Oxycodone HCl (Oxycodone Hcl Immed Release 5 Mg Tablet) 5 mg PO Q4H PRN PRN Reason: Pain, Severe (Pain Scale 7-10) Polyethylene Glycol (Polyethylene Glycol 3350 17 Gm Powd.Pack) 17 gm PO DAILY PRN PRN Reason: Constipation Senna (Sennosides 8.6 Mg Tablet) 17.2 mg PO BEDTIME REPLACED BY [facility] Sodium Chloride (0.9 % Sodium Chloride Flush 3 Ml Syringe) 3 ml IVFLUSH QSHIFT REPLACED BY [facility] Last Admin: 07/12/25 08:11 Dose: 3 ml Home Medications ?Medication ?Instructions ?Recorded ?Confirmed ?Last Taken ?Type abacavir 600 mg-dolutegravir 50 1 tab PO DAILY 5 07/12/25 07/11/25 09:00 History mg-lamivudine 300 mg tablet (Triumeq) brimonidine 0.2 % eye drops 1 drp ophthalmic (eye) BID 07/12/25 07/12/25 07/11/25 09:00 History celecoxib 200 mg capsule 200 mg PO DAILY 07/12/2504/3007/11/25 09:00 History ferrous sulfate 325 mg (65 mg 325 mg PO BID 07/12/25 0 07/12/25 07/11/25 09:00 History iron) tablet,delayed release hydrocortisone 2.5 % topical cream 1 appl topical EVER Y 07/12/25 07/12/25 07/11/25 09:00 History with perineal applicator insulin glargine 100 unit/mL (3 20 unit subcut DAILY 0 07/12/25 07/12/25 07/11/25 09:00 History mL) subcutaneous pen (Lantus Solostar U-100 Insulin) lisinopril 40 mg tablet 40 mg PO DAILY 07/12/25 09/0 04/3007/11/25 09:00 History omeprazole 20 mg capsule,delayed 20 mg PO DAILY 07/12/25 07/11/25 09:00 History release rosuvastatin 5 mg tablet 5 mg PO DAILY 07/12/2507/1207/11/25 09:00 History sitagliptin phosphate 100 mg 100 mg PO DAILY 07/12/25 07/12/2525 09:00 History tablet (Januvia) Physical Exam 2 Vital Signs: Vital Signs: Last Vital Signs Temp 98.2 F 07/12/25 01:55 Pulse 81 07/12/25 08:11 Resp 16 07/12/25 08:09 BP 136/32 L 07/12/25 09:31 Pulse Ox 98 07/12/25 08:09 O2 Del Method Room Air 07/12/25 08:09 BMI result Body Mass Index 22.1 GENERAL APPEARANCE: in no acute distress, pleasant. NECK: no carotid bruit, no jugular venous distention. SKIN: no suspicious lesions, warm and dry. HEART: Ejection systolic murmur aortic area with absent 2nd heart sound, holosystolic murmur at the apex, regular rate and rhythm. LUNGS: clear to auscultation bilaterally. ABDOMEN: soft, nontender. EXTREMITIES: no edema. PERIPHERAL PULSES: equal. NEUROLOGIC: No gross deficits, AAO X 3 Objective Labs and Meds 07/12/25 04:58 07/12/25 04:58 Lab results: Laboratory Results - last 24 hr 07/11/25 07/12/25 07/12/25 23:48 02:00 03:30 WBC 5.5 RBC 3.23 L Hgb 9.5 L Hct 28.1 L MCV 87.0 MCH 29.4 MCHC 33.8 RDW 15.9 Plt Count 121 L MPV 11.8 Immature Gran % (Auto) 0.4 Neut % (Auto) 80.6 H Lymph % (Auto) 8.2 L [place] % (Auto) 7.3 Eos % (Auto) 3.1 Baso % (Auto) 0.4 Lymph # (Auto) 0.5 L [place] # (Auto) 0.4 Eos # (Auto) 0.2 Baso # (Auto) 0.0 Abs Immat Gran (auto) 0.02 Absolute Neuts (auto) 4.4 Absolute Nucleated RBC 0.000 Nucleated RBC % (auto) 0.0 Absolute Retic Percent Retic Immature Retic Fraction Retic Hgb Equivalent PT 11.5 INR 1.0 Sodium 139 Potassium 4.6 Chloride 106 Carbon Dioxide 22 Anion Gap 16 BUN 26 H Creatinine 1.08 Estim Creat Clear Calc 86.2 Estimated GFR > 60 POC Glucose Random Glucose 432 H* Estimat Average Glucose Hemoglobin A1c % Haptoglobin Calcium 9.2 Magnesium 1.9 Iron TIBC % Saturation Unsat Iron Binding Ferritin Total Bilirubin 0.3 Direct Bilirubin 0.1 AST 30 ALT 29 Alkaline Phosphatase 164 H Lactate Dehydrogenase Troponin I High Sens 61.4 H 88.0 H B-Natriuretic Peptide 252 H Total Protein 7.5 Albumin 4.5 Vitamin B12 Folate TSH 3.18 Free T4 1.13 Urine Color Yellow Urine Appearance Clear Urine pH 5.5 Ur Specific [place] 1.025 Urine Protein Trace Urine Glucose (UA) >=1000 H Urine Ketones Trace Urine Blood Negative Urine Nitrite Negative Ur Leukocyte Esterase Negative Urine RBC 0-2 Urine WBC 0-5 Ur Squamous Epith Cells 0-2 Urine Bacteria None Seen Hyaline Casts 0-2 07/12/25 07/12/25 07/12/25 04:58 07:06 09:15 WBC 4.0 L RBC 2.93 L Hgb 8.4 L Hct 26.0 L MCV 88.7 MCH 28.7 MCHC 32.3 RDW 15.8 Plt Count 94 L MPV 12.2 Immature Gran % (Auto) 0.5 H Neut % (Auto) 73.5 H Lymph % (Auto) 12.9 L [place] % (Auto) 8.8 Eos % (Auto) 3.8 Baso % (Auto) 0.5 Lymph # (Auto) 0.5 L [place] # (Auto) 0.4 Eos # (Auto) 0.2 Baso # (Auto) 0.0 Abs Immat Gran (auto) 0.02 Absolute Neuts (auto) 2.9 Absolute Nucleated RBC 0.000 Nucleated RBC % (auto) 0.0 Absolute Retic 0.072 Percent Retic 2.5 H Immature Retic Fraction 23.5 H Retic Hgb Equivalent 30.6 PT INR Sodium 141 Potassium 4.2 Chloride 111 H Carbon Dioxide 23 Anion Gap 11 L BUN 23 H Creatinine 0.95 Estim Creat Clear Calc 64.6 Estimated GFR > 60 POC Glucose 193 H Random Glucose 222 H Estimat Average Glucose 186 Hemoglobin A1c % 8.1 H Haptoglobin 28 L Calcium 8.5 D Magnesium Iron 36 L TIBC 364 % Saturation 10 L Unsat Iron Binding 328 Ferritin 21 Total Bilirubin Direct Bilirubin AST ALT Alkaline Phosphatase Lactate Dehydrogenase 162 Troponin I High Sens B-Natriuretic Peptide Total Protein Albumin Vitamin B12 443 Folate 10.5 TSH Free T4 Urine Color Urine Appearance Urine pH Ur Specific [place] Urine Protein Urine Glucose (UA) Urine Ketones Urine Blood Urine Nitrite Ur Leukocyte Esterase Urine RBC Urine WBC Ur Squamous Epith Cells Urine Bacteria Hyaline Casts Assessment and Plan (1) Atrial flutter: Qualifiers: Atrial flutter type: unspecified Qualified Code(s): I48.92 - Unspecified atrial flutter Status: Acute (2) Aortic stenosis: Status: Acute Plan 75 year gentleman presenting for chest discomfort and atrial flutter with rapid ventricular response. He reverted to sinus rhythm and his chest pain has resolved. Mildly elevated troponin levels. He has pancytopenia. Repeat the CBC. If he has drop in platelet count below 50,000 then I think anticoagulation is not a good idea. Check echocardiogram to assess the systolic murmur. By exam he has aortic stenosis murmur. Sometime he has murmur can sound like MR at the apex. We will get more information as we get echocardiography done. Thank you for allowing me to participate in the care of your patient. Please feel free to contact me if you have any questions. Procedures Date of Service Date of Service: 07/12/25
[2025-07-12 11:49] LABS: Cannabinoid Screen Urine Not Detected (Not Detect)
[2025-07-12 12:07] LABS: Glucose, Whole Blood 228 mg/dL (60-115)
[2025-07-12 15:48] LABS: Hematocrit 26.5 % (42.0-52.0); Hemoglobin 8.6 g/dl (14.0-18.0); Mean Corpuscular HGB Conc 32.5 g/dl (31.0-36.0); Mean Corpuscular Hemoglobin 28.9 pg (27.0-33.0); Mean Corpuscular Volume 88.9 fL (80.0-98.0); NRBC Abs Auto 0.000 X10*3/uL (0.0-0.012); NRBC Pct Auto 0.0 /100WBC (0.0-0.2); Red Blood Count 2.98 X10*6/uL (4.60-5.80); White Blood Count 3.2 X10*3/uL (4.8-10.8)
[2025-07-12 15:51] LABS: Platelet Count 89 X10*3/uL (160-400)
[2025-07-12 17:59] LABS: Glucose, Whole Blood 265 mg/dL (60-115)
[2025-07-12] MEDS: Lactated Ringers 1,000 ML 80 ML IVCONT (18:23)
--- NOTE | 2025-07-12 18:25 | PC.NURSE ---
Pt did not touch his dinner tray, ate food that was brought in for him a couple of hours ago. Insulin held d/t pt not eating his tray.
[2025-07-12 18:37] LABS: Baso%MD 0.5 %; Eos%MD 4.6 %; IG%MD 0.5 %; Lymph%MD 13.8 %; Mono%MD 7.9 %; Neut%MD 72.7 %
[2025-07-12 19:18] LABS: Band Neutrophils Percent 0 % (3-5); Basophils Percent Manual 1 % (0-2); Eosinophils Absolute Manual 0.2 X10*3/uL (0.0-0.4); Eosinophils Percent Manual 5 % (0-4); Lymphocytes Absolute Manual 0.3 X10*3/uL (1.2-4.9); Lymphocytes Percent Manual 8 % (20-40); Microcytosis 1+ (5-14) /OIF; Monocytes Absolute Manual 0.2 X10*3/uL (0.1-1.2); Monocytes Percent Manual 6 % (2-11); Neutrophils Absolute Manual 3.2 X10*3/uL (2.0-8.3); Neutrophils Percent Manual 80 % (45-73); RBC Morphology NOTED
[2025-07-12 19:19] LABS: Large Platelet PRESENT; Ovalocytes 1+ (5-14) /OIF; Schistocytes 1+ (0-2) /OIF
[2025-07-12 19:20] LABS: Polychromasia 1+ (0-2) /OIF; Toxic Vacuolation PRESENT
[2025-07-12] MEDS: Ferrous Sulfate 324 MG TABLET.DR PO (20:42)
[2025-07-12 20:50] LABS: Glucose, Whole Blood 264 mg/dL (60-115)
[2025-07-13 03:14] VITALS: BP 143/72; PULSE 80; RESP 16; TEMP 36.6; O2SAT 99
[2025-07-13] MEDS: Lactated Ringers 1,000 ML 80 ML IVCONT (06:05)
[2025-07-13 07:17] VITALS: BP 157/72; PULSE 82; RESP 20; TEMP 36.7; O2SAT 98
[2025-07-13 07:42] LABS: Hematocrit 25.5 % (42.0-52.0); Hemoglobin 8.3 g/dl (14.0-18.0); Mean Corpuscular HGB Conc 32.5 g/dl (31.0-36.0); Mean Corpuscular Hemoglobin 28.6 pg (27.0-33.0); Mean Corpuscular Volume 87.9 fL (80.0-98.0); NRBC Abs Auto 0.000 X10*3/uL (0.0-0.012); NRBC Pct Auto 0.0 /100WBC (0.0-0.2); Red Blood Count 2.90 X10*6/uL (4.60-5.80); White Blood Count 2.6 X10*3/uL (4.8-10.8)
[2025-07-13 07:47] LABS: Platelet Count 78 X10*3/uL (160-400)
[2025-07-13 08:04] LABS: Glucose, Whole Blood 189 mg/dL (60-115)
--- NOTE | 2025-07-13 08:41 | HO.PM.IMPN ---
Subjective Subjective Date of Service: 07/13/25 Interval History: anemia afluter pain Physical Exam Vital Signs: Vital Signs: Last Vital Signs Temp 98.1 F 07/13/25 07:17 Pulse 82 07/13/25 07:17 Resp 20 07/13/25 07:17 BP 157/72 H 07/13/25 07:17 Pulse Ox 98 07/13/25 07:17 O2 Del Method Room Air 07/13/25 07:17 BMI result Body Mass Index 21.7 Objective Data Active Medications Abacavir Sulfate (Abacavir Sulfate 300 Mg Tablet) 600 mg PO DAILY [facility] Last Admin: 07/12/25 11:07 Dose: 600 mg Documented By: YANET Acetaminophen (Acetaminophen 325 Mg Tablet) 650 mg PO Q6H PRN PRN Reason: Pain, Mild 1-3,fever,headache Albuterol/Ipratropium (Albuterol/Iprat 2.5/0.5mg 3 Ml Ampul.Neb) 3 ml INHALE Q4H PRN PRN Reason: Shortness of Breath/Wheezing Atorvastatin Calcium (Atorvastatin Calcium 10 Mg Tablet) 10 mg PO DAILY [facility] Brimonidine Tartrate (Brimonidine Tartrate 0.2% Oph 5 Ml Bottle) 1 drop EYE-BOTH BID [facility] Last Admin: 07/12/25 20:43 Dose: 1 drop Documented By: REILLY Calcium Carbonate (Calcium Carbonate 750 Mg Tab.Chew) 750 mg PO Q4H PRN PRN Reason: Heartburn Dextrose (Dextrose 50 % 25 Gm/50 Ml Syringe) 25 gm IVPUSH Q15M PRN; Protocol PRN Reason: per Hypoglycemia Standing Ord. Diltiazem HCl (Diltiazem Hcl 30 Mg Tablet) 30 mg PO QID [facility]; Protocol Last Admin: 07/12/25 20:42 Dose: 30 mg Documented By: REILLY Dolutegravir Sodium (Dolutegravir Sodium 50 Mg Tablet) 50 mg PO DAILY [facility] Last Admin: 07/12/25 11:06 Dose: 50 mg Documented By: YANET Ferrous Sulfate (Ferrous Sulfate 324 Mg Tablet.) 324 mg PO BID [facility] Last Admin: 07/12/25 20:42 Dose: 324 mg Documented By: REILLY Glucose (Glucose Gel 15 Gm Gel..Gram.) 15 gm PO Q15M PRN; Protocol PRN Reason: per Hypoglycemia Standing Ord. Hydrocortisone (Hydrocortisone 2.5 % Rectal Cr 30 Gm Tube) 1 appl TOPICAL DAILY [facility] Last Admin: 07/12/25 09:51 Dose: Not Given Documented By: YANET Non-Admin Reason: Patient Refused Lactated Ringer's (Lr) 1,000 mls @ 80 mls/hr IVCONT .[id number] [facility] Last Admin: 07/13/25 06:05 Dose: 80 mls/hr Documented By: RITU Insulin Glargine (Insulin Glargine,Hum.Rec.Anlog 100 Unit/Ml 10 Ml Vial) 20 unit SUBCUT DAILY [facility] Last Admin: 07/12/25 09:33 Dose: 20 unit Documented By: YANET Insulin Human Lispro (Insulin Lispro 100 Unit/Ml 3 Ml Vial) 0 unit SUBCUT QIDACHS [facility]; Protocol Last Admin: 07/12/25 20:51 Dose: 6 unit Documented By: REILLY Lamivudine (Lamivudine 150 Mg Tablet) 300 mg PO DAILY [facility] Last Admin: 07/12/25 11:06 Dose: 300 mg Documented By: YANET Lidocaine (Lidocaine 4 % Patch Adh..Patch) 2 patch TRANSDERMA DAILY [facility]; Protocol Lisinopril (Lisinopril 40 Mg Tablet) 40 mg PO DAILY [facility]; Protocol Last Admin: 07/12/25 09:31 Dose: 40 mg Documented By: YANET Magnesium Hydroxide (Milk Of Magnesia 30 Ml Oral.Susp) 30 ml PO DAILY PRN PRN Reason: Constipation Melatonin (Melatonin 3 Mg Tablet) 6 mg PO BEDTIME PRN PRN Reason: Insomnia Omeprazole (Omeprazole 20 Mg Capsule.Dr) 20 mg PO DAILY [facility] Last Admin: 07/12/25 09:31 Dose: 20 mg Documented By: YANET Ondansetron HCl (Ondansetron Hcl 4 Mg/2 Ml Vial) 4 mg IVPUSH Q8H PRN PRN Reason: Nausea and Vomiting Polyethylene Glycol (Polyethylene Glycol 3350 17 Gm Powd.Pack) 17 gm PO DAILY PRN PRN Reason: Constipation Senna (Sennosides 8.6 Mg Tablet) 17.2 mg PO BEDTIME [facility] Last Admin: 07/12/25 20:42 Dose: 17.2 mg Documented By: REILLY Sodium Chloride (0.9 % Sodium Chloride Flush 3 Ml Syringe) 3 ml IVFLUSH QSHIFT [facility] Last Admin: 07/13/25 07:33 Dose: Not Given Documented By: CLIFFORD Non-Admin Reason: Previously Administered Labs 07/13/25 07:11 07/12/25 04:58 Labs: Laboratory Results - last 24 hr 07/12/25 07/12/25 07/12/25 04:58 09:15 11:16 MCV 88.7 MCH 28.7 MCHC 32.3 RDW 15.8 Plt Count 94 L MPV 12.2 Immature Gran % (Auto) Cancelled Neut % (Auto) Cancelled Lymph % (Auto) Cancelled [place] % (Auto) Cancelled Eos % (Auto) Cancelled Baso % (Auto) Cancelled Lymph # (Auto) Cancelled [place] # (Auto) Cancelled Eos # (Auto) Cancelled Baso # (Auto) Cancelled Abs Immat Gran (auto) Cancelled Absolute Neuts (auto) Cancelled Absolute Nucleated RBC 0.000 Nucleated RBC % (auto) 0.0 Neutrophils % (Manual) 80 H Band Neutrophils % 0 L Lymphocytes % (Manual) 8 L Monocytes % (Manual) 6 Eosinophils % (Manual) 5 H Basophils % (Manual) 1 Abs Neuts (Manual) 3.2 Lymphocytes # (Manual) 0.3 L Monocytes # (Manual) 0.2 Eosinophils # (Manual) 0.2 Toxic Vacuolation PRESENT Platelet Estimate DECREASED Large Platelets PRESENT Plt Morphology Comment NOTED RBC Morphology NOTED Polychromasia 1+ (0-2) Microcytosis 1+ (5-14) Ovalocytes 1+ (5-14) Schistocytes 1+ (0-2) Absolute Retic 0.072 Percent Retic 2.5 H Immature Retic Fraction 23.5 H Retic Hgb Equivalent 30.6 POC Glucose Haptoglobin 28 L Iron 36 L TIBC 364 % Saturation 10 L Unsat Iron Binding 328 Ferritin 21 Lactate Dehydrogenase 162 Vitamin B12 443 Folate 10.5 Urine Opiates Screen Not Detected Ur Buprenorphine Scrn Not Detected Ur Oxycodone Screen Not Detected Urine Methadone Screen Not Detected Urine Fentanyl Screen Not Detected Ur Barbiturates Screen Not Detected Ur Phencyclidine Scrn Not Detected Ur Amphetamines Screen Not Detected U Benzodiazepines Scrn Not Detected Urine Cocaine Screen POSITIVE H U Marijuana (THC) Screen Not Detected 07/12/25 07/12/25 07/12/25 12:01 15:30 17:54 MCV 88.9 MCH 28.9 MCHC 32.5 RDW 15.9 Plt Count 89 L MPV 12.4 Immature Gran % (Auto) Neut % (Auto) Lymph % (Auto) [place] % (Auto) Eos % (Auto) Baso % (Auto) Lymph # (Auto) [place] # (Auto) Eos # (Auto) Baso # (Auto) Abs Immat Gran (auto) Absolute Neuts (auto) Absolute Nucleated RBC 0.000 Nucleated RBC % (auto) 0.0 Neutrophils % (Manual) Band Neutrophils % Lymphocytes % (Manual) Monocytes % (Manual) Eosinophils % (Manual) Basophils % (Manual) Abs Neuts (Manual) Lymphocytes # (Manual) Monocytes # (Manual) Eosinophils # (Manual) Toxic Vacuolation Platelet Estimate Large Platelets Plt Morphology Comment RBC Morphology Polychromasia Microcytosis Ovalocytes Schistocytes Absolute Retic Percent Retic Immature Retic Fraction Retic Hgb Equivalent POC Glucose 228 H 265 H Haptoglobin Iron TIBC % Saturation Unsat Iron Binding Ferritin Lactate Dehydrogenase Vitamin B12 Folate Urine Opiates Screen Ur Buprenorphine Scrn Ur Oxycodone Screen Urine Methadone Screen Urine Fentanyl Screen Ur Barbiturates Screen Ur Phencyclidine Scrn Ur Amphetamines Screen U Benzodiazepines Scrn Urine Cocaine Screen U Marijuana (THC) Screen 07/12/25 07/13/25 07/13/25 20:47 07:11 07:17 MCV 87.9 MCH 28.6 MCHC 32.5 RDW 15.7 Plt Count 78 L MPV 12.2 Immature Gran % (Auto) Neut % (Auto) Lymph % (Auto) [place] % (Auto) Eos % (Auto) Baso % (Auto) Lymph # (Auto) [place] # (Auto) Eos # (Auto) Baso # (Auto) Abs Immat Gran (auto) Absolute Neuts (auto) Absolute Nucleated RBC 0.000 Nucleated RBC % (auto) 0.0 Neutrophils % (Manual) Band Neutrophils % Lymphocytes % (Manual) Monocytes % (Manual) Eosinophils % (Manual) Basophils % (Manual) Abs Neuts (Manual) Lymphocytes # (Manual) Monocytes # (Manual) Eosinophils # (Manual) Toxic Vacuolation Platelet Estimate Large Platelets Plt Morphology Comment RBC Morphology Polychromasia Microcytosis Ovalocytes Schistocytes Absolute Retic Percent Retic Immature Retic Fraction Retic Hgb Equivalent POC Glucose 264 H 189 H Haptoglobin Iron TIBC % Saturation Unsat Iron Binding Ferritin Lactate Dehydrogenase Vitamin B12 Folate Urine Opiates Screen Ur Buprenorphine Scrn Ur Oxycodone Screen Urine Methadone Screen Urine Fentanyl Screen Ur Barbiturates Screen Ur Phencyclidine Scrn Ur Amphetamines Screen U Benzodiazepines Scrn Urine Cocaine Screen U Marijuana (THC) Screen Assessment and Plan (1) Aortic stenosis: Status: Acute (2) Atrial flutter: Status: Acute (3) Pancytopenia: Status: Acute (4) Liver disease: Status: Acute Plan 75 yo male, Portuguese-speaking only, with PMH DMII, HTN, HIV currently on medication with no detection, 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 Patient diagnosed with new onset a flutter RVR. Patient was treated in the emergency room with Cardizem IV and now converted to sinus rhythm. Patient also has noted anemia not requiring transfusion. Patient also has known diabetes currently insulin-dependent. Recent [facility] visit with GI: [facility] recoreds reecnt Gi note reviewed(Gi visit in 06/30):?75-year-old male following up for cirrhosis and screening?colonoscopy with significant past medical history for HIV/HCV coinfection status post SVR, demyelinating polyneuropathy, diabetes mellitus, GERD, esophageal varices, prostate cancer, tubular adenomatous polyps of the colon and other medical problems. Ed is well w/o complaint.??Denies acholic stools, dark-colored urine, pruritus, lower extremity edema, jaundice, scleral icterus, problems with his memory or acute episodes of confusion. ?Labs showing low Platelets. ?May,?EGD and Colonoscopy (fair prep) reported esophageal varices and portal hypertensive gastropathy in the stomach, TVA and TA polyps in the colon and recommendation to repeat both in one year.?Bowel movements regular without constipation, diarrhea.? Occasional?BRB attributed to hemorrhoids. his recent h/h 10.5/33 ,platlets in 100 range A flutter RVR, new onset seems like reveerted back to nsr ,ekg added Echocardiogram ordered - note mild systolic murmur on exam CHAdVas score 4 Troponins trending 61.4, 88 - continue to trend until peak level noted, likely demand ischemia elevated bnp plan:tele chest pain seems to be improved Lovenox weight based x1, platelets tednsing down as well as h/h : will repeat cbc ,if platelets below 50 then avoid AC. Cardizem 30 mg q.6 currently ordered Patient recently seen by Cardiology as an outpatient had plan for an outpatient stress test not yet completed. cardio consult noted . pnacytopenia:? multifactorial ( hx of hiv ,?? liver dis ,ch thrombocytopenia) No issues with spontaneous bleeding, bruising PLTs 121-94 anemia workup added, added cbc repeat since h/h was 10.5 last month. IDDM SSI Diabetic Diet HIV home meds started. History of substance use disorder Patient no longer on methadone Patient denies active use of illicit drugs Noting patient has been having chest pain, urine toxicology positive for cocaine. DVT prophylaxis: Lovenox weight based x1 noting a flutter ongoing need for stay:chest pain workup/anemia workup-moniter cbc closely, as well as cardiology follwoup Quality Stroke Does the patient have a stroke diagnosis?: No Reason for No Anti-thrombotic by Day Two: N/A - Med Ordered VTE Prior VTE?: No VTE Risk Level:: Medical - moderate - high VTE Device Contraindication: N/A - Device Ordered VTE Drug Contraindication: N/A - Med Ordered
[2025-07-13] MEDS: Ferrous Sulfate 324 MG TABLET.DR PO (08:45)
[2025-07-13] MEDS: Lidocaine 4 % Patch ADH..PATCH 2 PATCH TRANSDERMA (08:46)
[2025-07-13] MEDS: Brimonidine Tartrate 0.2% Oph 5 ML BOTTLE 1 DROP EYE-BOTH (08:48)
[2025-07-13] MEDS: Insulin Glargine,Hum.rec.anlog 100 UNIT/ML 10 ML VIAL 20 UNIT SUBCUT (08:48)
--- NOTE | 2025-07-13 11:21 | P.PNCA_ITS ---
Subjective Subjective Date of Service: 07/13/25 Interval history: Seen examined at bedside. Feeling better. Physical Exam Vital Signs: Last Vital Signs Temp 98.1 F 07/13/25 07:17 Pulse 82 07/13/25 07:17 Resp 20 07/13/25 07:17 BP 157/72 H 07/13/25 07:17 Pulse Ox 98 07/13/25 07:17 O2 Del Method Room Air 07/13/25 07:17 BMI result Body Mass Index 21.7 GENERAL APPEARANCE: in no acute distress, pleasant. NECK: no carotid bruit, no jugular venous distention. SKIN: no suspicious lesions, warm and dry. HEART: Systolic murmur all over the precordium, regular rate and rhythm. LUNGS: clear to auscultation bilaterally. ABDOMEN: soft, nontender. EXTREMITIES: no edema. PERIPHERAL PULSES: equal. NEUROLOGIC: No gross deficits, AAO X 3 Objective Labs and Meds 07/13/25 07:11 07/12/25 04:58 Lab results: Laboratory Results - last 24 hr 07/12/25 07/12/25 07/12/25 04:58 11:16 12:01 WBC 4.0 L RBC 2.93 L Hgb 8.4 L Hct 26.0 L MCV 88.7 MCH 28.7 MCHC 32.3 RDW 15.8 Plt Count 94 L MPV 12.2 Immature Gran % (Auto) Cancelled Neut % (Auto) Cancelled Lymph % (Auto) Cancelled [place] % (Auto) Cancelled Eos % (Auto) Cancelled Baso % (Auto) Cancelled Lymph # (Auto) Cancelled [place] # (Auto) Cancelled Eos # (Auto) Cancelled Baso # (Auto) Cancelled Abs Immat Gran (auto) Cancelled Absolute Neuts (auto) Cancelled Absolute Nucleated RBC 0.000 Nucleated RBC % (auto) 0.0 Neutrophils % (Manual) 80 H Band Neutrophils % 0 L Lymphocytes % (Manual) 8 L Monocytes % (Manual) 6 Eosinophils % (Manual) 5 H Basophils % (Manual) 1 Abs Neuts (Manual) 3.2 Lymphocytes # (Manual) 0.3 L Monocytes # (Manual) 0.2 Eosinophils # (Manual) 0.2 Toxic Vacuolation PRESENT Platelet Estimate DECREASED Large Platelets PRESENT Plt Morphology Comment NOTED RBC Morphology NOTED Polychromasia 1+ (0-2) Microcytosis 1+ (5-14) Ovalocytes 1+ (5-14) Schistocytes 1+ (0-2) POC Glucose 228 H Urine Opiates Screen Not Detected Ur Buprenorphine Scrn Not Detected Ur Oxycodone Screen Not Detected Urine Methadone Screen Not Detected Urine Fentanyl Screen Not Detected Ur Barbiturates Screen Not Detected Ur Phencyclidine Scrn Not Detected Ur Amphetamines Screen Not Detected U Benzodiazepines Scrn Not Detected Urine Cocaine Screen POSITIVE H U Marijuana (THC) Screen Not Detected 07/12/25 07/12/25 07/12/25 15:30 17:54 20:47 WBC 3.2 L RBC 2.98 L Hgb 8.6 L Hct 26.5 L MCV 88.9 MCH 28.9 MCHC 32.5 RDW 15.9 Plt Count 89 L MPV 12.4 Immature Gran % (Auto) Neut % (Auto) Lymph % (Auto) [place] % (Auto) Eos % (Auto) Baso % (Auto) Lymph # (Auto) [place] # (Auto) Eos # (Auto) Baso # (Auto) Abs Immat Gran (auto) Absolute Neuts (auto) Absolute Nucleated RBC 0.000 Nucleated RBC % (auto) 0.0 Neutrophils % (Manual) Band Neutrophils % Lymphocytes % (Manual) Monocytes % (Manual) Eosinophils % (Manual) Basophils % (Manual) Abs Neuts (Manual) Lymphocytes # (Manual) Monocytes # (Manual) Eosinophils # (Manual) Toxic Vacuolation Platelet Estimate Large Platelets Plt Morphology Comment RBC Morphology Polychromasia Microcytosis Ovalocytes Schistocytes POC Glucose 265 H 264 H Urine Opiates Screen Ur Buprenorphine Scrn Ur Oxycodone Screen Urine Methadone Screen Urine Fentanyl Screen Ur Barbiturates Screen Ur Phencyclidine Scrn Ur Amphetamines Screen U Benzodiazepines Scrn Urine Cocaine Screen U Marijuana (THC) Screen 07/13/25 07/13/25 07:11 07:17 WBC 2.6 L RBC 2.90 L Hgb 8.3 L Hct 25.5 L MCV 87.9 MCH 28.6 MCHC 32.5 RDW 15.7 Plt Count 78 L MPV 12.2 Immature Gran % (Auto) Neut % (Auto) Lymph % (Auto) [place] % (Auto) Eos % (Auto) Baso % (Auto) Lymph # (Auto) [place] # (Auto) Eos # (Auto) Baso # (Auto) Abs Immat Gran (auto) Absolute Neuts (auto) Absolute Nucleated RBC 0.000 Nucleated RBC % (auto) 0.0 Neutrophils % (Manual) Band Neutrophils % Lymphocytes % (Manual) Monocytes % (Manual) Eosinophils % (Manual) Basophils % (Manual) Abs Neuts (Manual) Lymphocytes # (Manual) Monocytes # (Manual) Eosinophils # (Manual) Toxic Vacuolation Platelet Estimate Large Platelets Plt Morphology Comment RBC Morphology Polychromasia Microcytosis Ovalocytes Schistocytes POC Glucose 189 H Urine Opiates Screen Ur Buprenorphine Scrn Ur Oxycodone Screen Urine Methadone Screen Urine Fentanyl Screen Ur Barbiturates Screen Ur Phencyclidine Scrn Ur Amphetamines Screen U Benzodiazepines Scrn Urine Cocaine Screen U Marijuana (THC) Screen Progress Note: A&P Assessment and plan (1) Atrial flutter: Status: Acute (2) Aortic stenosis: Status: Acute Plan [age] year gentleman presenting for chest pain and palpitations. He was noticed to be in atrial flutter. He reverted to sinus rhythm and since then has been doing well. He has background history of pancytopenia and cirrhosis. There is also history of varices. Currently no plan for anticoagulation due to bleeding risk. 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 He has cirrhosis which is a hyperdynamic state and he is also anemic. He has responded well to IV fluids in his murmur appears less prominent. He does not have significant LVH to explain LVOT obstruction and I think this is due to hyperdynamic state. Changed to diltiazem 180 mg daily. As mentioned due to significant bleeding concerns-not starting anticoagulation. Thank you for allowing me to participate in the care of your patient. Please feel free to contact me if you have any questions. Time Spent With Patient Time: Total time managing care of this patient today ____ minutes. Progress Note: Quality Stroke Does the patient have a stroke diagnosis?: No Reason for No Anti-thrombotic by Day Two: N/A - Med Ordered Procedures Date of Service Date of Service: 07/13/25
[2025-07-13 11:23] VITALS: BP 111/56; PULSE 83; RESP 20; TEMP 36.7; O2SAT 98
--- NOTE | 2025-07-13 11:43 | MHC.CM.PN ---
CM assessment completed w/ [employer] consultant assistance. Patient lives in an apartment w/ his significant other, who also provides daily SISAL OPERATOR services, assisting w/ all care. Ambulates w/ a rollator. Reports he has a VNA, but cannot recall name of agency, ? out of [place]. Reports his S.O. will be here later today and will know the agency. PCP Isra Bernal MD No HCP. CM provided education and offered assistance. Patient declined. DP: PT eval pending. Goal is home, resume services, S.O. to transport. CM will continue to follow.
[2025-07-13 11:58] LABS: Glucose, Whole Blood 219 mg/dL (60-115)
--- NOTE | 2025-07-13 12:37 | P.DS_ITS ---
DS: Providers Provider Date of Service: 07/13/25 Date of admission: 07/12/25 02:49 Date of discharge: 07/13/25 Primary care physician: Isra Bernal MD Consults: 07/12/25 02:57 Consult to Cardiology Routine Consulting Provider: [facility] Reason for consultation: new onset Aflutter RVR, chest pain Attending physician on discharge: Todd Barrientos Discharging clinician: Todd Barrientos DS: Diagnosis Discharge Diagnosis (1) Atrial flutter: Status: Acute (2) Aortic stenosis: Status: Acute DS: Summary Hospital Course Hospital Course: HPI:75 yo male, [place]-speaking only, with PMH DMII, HTN, HIV currently on medication with no detection, 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 Patient had been seen by Cardiology as an outpatient in the recent past for ongoing angina. Patient had a prescription for nitroglycerin and attempted to use medication sublingually with no improvement in symptoms. 911 was called. When EMS arrived patient had heart rate in the 150s and EMS was unable to provide any intervention due to poor IV access. Upon arrival to the ED, patient's heart rate was 155 and patient was alert and orientated but compla ining of active chest pain with again radiation to left arm. Initial EKG had evidence of supraventricular tachycardia. Patient received initially 6 mg of adenosine, but patient's heart rate then a flutter in the 150s. Patient was then given 0.25 milligrams/kilogram a Cardizem or 17 mg with good effect. Patient's rate became controlled. Patient's chest pain also resolved. Upon admission, patient is currently in normal sinus rhythm with a heart rate of 88. EKG without ischemic changes. Troponin 61.4 than 88. BNP elevated at 252. Blood glucose on arrival 432 mg/dL. Patient does have a mild systolic murmur on exam. Echocardiogram is pending. Patient resting comfortably with no complaints. Patient is planned for an outpatient stress test in the near future. Patient admitted for new onset a flutter RVR, currently in normal sinus rhythm and chest tightness with evidence of chronic anemia. Hospital course: Patient admitted for new onset a flutter RVR, currently in normal sinus rhythm and angina with evidence of chronic anemia: aflutter : switched to po cardizem monitor 180 mg q.day upon discharge. Use of anticoagulation will be decided out patiently with Cardiology in [facility]. Patient has appointment on coming Monday. seen by cardiology-rec yazmin as above . pancytopenia : h/h stble in 8.3 /25.5 ( likley some haemodilaution) .seem like has component of iron def -advised complance with p.o. iron. Continue omeprazole. Patient denies any beverly bleeding or melena, has hemorrhoids-he says intermittent has some bleeding due to hemorrhoids. No beverly bleeding during this admission. Monitor CBC closely, further workup outpatient with [facility] GI. Patient also has shoulder pain: Chronic-added pain medications-including lidocaine patch/tramadol. Avoid NSAID currently due to low H&h. Discussed with the patient's daughter patient is already getting further workup for shoulder pain and management out patiently in [facility]-they will resume from there. Patient was also strongly advised to abstain from substance use. plan: Cardizem monitor mg p.o. daily CBC and BMP monitoring. Follow-up with Cardiology [facility] as well as shoulder pain workup outpatient. Avoid NSAID/aspirin. Further use of anticoagulation outpatient per Cardiology [facility]. above management d/w patient and his daughter in detail,they understand and inagreement with above plan, time spent 45 min ,all questions answered. Time Attestation Total time managing care of this patient today: 45 mintues. Discharge Coordination Time (in mins): 45 Quality: Safe Use of Opioids Does Pt have an Active Cancer Diagnosis on the Problem List?: No Quality: Stroke Does the patient have a stroke diagnosis?: No Physical Exam Exam: Exam: Appearance: Alert.? Oriented X3.? cvs: rrr, [id number] . res: clear to auscultation ,no rhonchii or wheezing abd: no rebound or guarding ,nt, bs present. ext pulses present , no cyanosis . neuro: axo3 , nonfocal. Vital Signs: Vital Signs: Last Vital Signs Temp 98.1 F 07/13/25 11:23 Pulse 83 07/13/25 11:23 Resp 20 07/13/25 11:23 BP 111/56 L 07/13/25 11:23 Pulse Ox 98 07/13/25 11:23 O2 Del Method Room Air 07/13/25 11:23 BMI result Body Mass Index 21.7 DS: Data Data Completed and Pending Labs on day of discharge: Laboratory Results - last 24 hr 07/12/25 07/12/25 07/12/25 04:58 15:30 17:54 WBC 4.0 L 3.2 L RBC 2.93 L 2.98 L Hgb 8.4 L 8.6 L Hct 26.0 L 26.5 L MCV 88.7 88.9 MCH 28.7 28.9 MCHC 32.3 32.5 RDW 15.8 15.9 Plt Count 94 L 89 L MPV 12.2 12.4 Immature Gran % (Auto) Cancelled Neut % (Auto) Cancelled Lymph % (Auto) Cancelled [place] % (Auto) Cancelled Eos % (Auto) Cancelled Baso % (Auto) Cancelled Lymph # (Auto) Cancelled [place] # (Auto) Cancelled Eos # (Auto) Cancelled Baso # (Auto) Cancelled Abs Immat Gran (auto) Cancelled Absolute Neuts (auto) Cancelled Absolute Nucleated RBC 0.000 0.000 Nucleated RBC % (auto) 0.0 0.0 Neutrophils % (Manual) 80 H Band Neutrophils % 0 L Lymphocytes % (Manual) 8 L Monocytes % (Manual) 6 Eosinophils % (Manual) 5 H Basophils % (Manual) 1 Abs Neuts (Manual) 3.2 Lymphocytes # (Manual) 0.3 L Monocytes # (Manual) 0.2 Eosinophils # (Manual) 0.2 Toxic Vacuolation PRESENT Platelet Estimate DECREASED Large Platelets PRESENT Plt Morphology Comment NOTED RBC Morphology NOTED Polychromasia 1+ (0-2) Microcytosis 1+ (5-14) Ovalocytes 1+ (5-14) Schistocytes 1+ (0-2) POC Glucose 265 H 07/12/25 07/13/25 07/13/25 20:47 07:11 07:17 WBC 2.6 L RBC 2.90 L Hgb 8.3 L Hct 25.5 L MCV 87.9 MCH 28.6 MCHC 32.5 RDW 15.7 Plt Count 78 L MPV 12.2 Immature Gran % (Auto) Neut % (Auto) Lymph % (Auto) [place] % (Auto) Eos % (Auto) Baso % (Auto) Lymph # (Auto) [place] # (Auto) Eos # (Auto) Baso # (Auto) Abs Immat Gran (auto) Absolute Neuts (auto) Absolute Nucleated RBC 0.000 Nucleated RBC % (auto) 0.0 Neutrophils % (Manual) Band Neutrophils % Lymphocytes % (Manual) Monocytes % (Manual) Eosinophils % (Manual) Basophils % (Manual) Abs Neuts (Manual) Lymphocytes # (Manual) Monocytes # (Manual) Eosinophils # (Manual) Toxic Vacuolation Platelet Estimate Large Platelets Plt Morphology Comment RBC Morphology Polychromasia Microcytosis Ovalocytes Schistocytes POC Glucose 264 H 189 H 07/13/25 11:22 WBC RBC Hgb Hct MCV MCH MCHC RDW Plt Count MPV Immature Gran % (Auto) Neut % (Auto) Lymph % (Auto) [place] % (Auto) Eos % (Auto) Baso % (Auto) Lymph # (Auto) [place] # (Auto) Eos # (Auto) Baso # (Auto) Abs Immat Gran (auto) Absolute Neuts (auto) Absolute Nucleated RBC Nucleated RBC % (auto) Neutrophils % (Manual) Band Neutrophils % Lymphocytes % (Manual) Monocytes % (Manual) Eosinophils % (Manual) Basophils % (Manual) Abs Neuts (Manual) Lymphocytes # (Manual) Monocytes # (Manual) Eosinophils # (Manual) Toxic Vacuolation Platelet Estimate Large Platelets Plt Morphology Comment RBC Morphology Polychromasia Microcytosis Ovalocytes Schistocytes POC Glucose 219 H Discharge Plan Discharge Anticipated Discharge Date/Time: 07/13/25 12:23 Patient Disposition: Home Health Service Discharge Diagnosis: aflutter , pancytopenia Referrals: [facility] [Other] - 1 Week Referral Note: resume services Isra Bernal MD [Primary Care Provider, Internal Medicine] - 1 Week Discharge Medications: New sennosides [Senna Lax] 8.6 mg Tablet 17.2 mg PO BEDTIME Qty: 30 0RF lidocaine [Lidocaine Pain Relief] 4 % Adhesive Patch,Medicated 2 patch transdermal DAILY Qty: 20 0RF Protocol: Apply to: Apply to: affected area polyethylene glycol 3350 17 gram Powder In Packet 17 g PO DAILY PRN (Reason: Constipation) Qty: 30 0RF tramadol 50 mg Tablet 25 mg PO Q4H PRN (Reason: Pain, Severe (Pain Scale 7-10)) Qty: 10 0RF diltiazem HCl [Cardizem CD] 180 mg capsule,extended release 24hr 180 mg PO DAILY Qty: 90 0RF Continued hydrocortisone 2.5 % cream with perineal applicator 1 appl topical DAILY brimonidine 0.2 % drops 1 drp ophthalmic (eye) BID omeprazole 20 mg capsule,delayed release(DR/EC) 20 mg PO DAILY ferrous sulfate 325 mg (65 mg iron) tablet,delayed release (DR/EC) 325 mg PO BID lisinopril 40 mg tablet 40 mg PO DAILY rosuvastatin 5 mg tablet 5 mg PO DAILY Januvia 100 mg tablet 100 mg PO DAILY insulin glargine [Lantus Solostar U-100 Insulin] 100 unit/mL (3 mL) insulin pen 20 unit subcut DAILY Triumeq 600-50-300 mg tablet 1 tab PO DAILY Discontinued celecoxib 200 mg capsule 200 mg PO DAILY Discharge Orders: Discharge Order (Routine); Ordered 07/13/25 Ordered By: Todd Barrientos Diet: Advance to usual diet Activity on Discharge: As tolerated Stand Alone Forms: Patient Portal Discharge page Print Language: [place] Other Ambulatory Orders: Complete Blood Count no Diff (Routine) Timeframe: 1 Week Facility: [facility] - Location: Laboratory Ordered By: Todd Barrientos Comprehensive Met. Panel (Routine) Timeframe: 1 Week Facility: [facility] - Location: Laboratory Ordered By: Todd Barrientos Care Plan Goals: aflutter : switched to po cardizem monitor 180 mg q.day upon discharge. Use of anticoagulation will be decided out patiently with Cardiology in [facility]. Patient has appointment on coming Monday. pancytopenia : h/h stble in .3 .5 ( likley some haemodilaution) .seem like has component of iron def -advised complance with p.o. iron. Continue omeprazole. Patient denies any beverly bleeding or melena, has hemorrhoids-he says intermittent has some bleeding due to hemorrhoids. No beverly bleeding during this admission. Monitor CBC closely, further workup outpatient with [facility]. Patient also has shoulder pain: Chronic-added pain medications-including lidocaine patch/tramadol. Avoid NSAID currently due to low H&h. Discussed with the patient's daughter patient is already getting further workup for shoulder pain and management out patiently in [facility]-they will resume from there. Patient was also strongly advised to abstain from substance use. Health Concerns: Cardizem monitor mg p.o. daily CBC and BMP monitoring. Follow-up with Cardiology [facility] as well as shoulder pain workup outpatient. Avoid NSAID/aspirin. Further use of anticoagulation outpatient per Cardiology [facility]. Plan of Treatment: As above. Assessment: As above. Discharge Date/Time: 07/13/25 14:42
--- NOTE | 2025-07-13 12:42 | MHC.CM.PN ---
Addendum entered by Sasha Duff RN 07/13/25 12:45: S.OAshlie Zaragoza reports patient is active w/ [facility] for adult FC and [facility] provides weekly nursing services. Original Note: Patient medically cleared for dc home w/ resumption of services. S.O. will transport.
[2025-07-13] MEDS: Naloxone HCl Nasal TAKE HOME 4 MG SPRAY 8 MG NOSTRILALT (13:27)
[2025-07-13] MEDS: dilTIAZem HCL CD 120 MG CAP.ER.DEG PO (13:27)
--- NOTE | 2025-07-13 13:30 | PC.NURSE ---
parts interpreter at [facility] for discharge instructions. narcan was given to pt and pt was educated on usage. iv and tele removed. belongings with pt
== END 2025-07-13 14:42 | disposition home health service (06) | DRG 309 ==
LOC: HO.ED 07-12 01:24 → HO.EDOVER 07-12 03:05 → HO.IMC 07-12 20:10
PROVIDERS: Nurse Practitioner Family; Physician Assistant; Admitting Provider Internal Medicine; Emergency Provider Emergency Medicine; PCP Internal Medicine; Visit Provider Internal Medicine
DX: I48.92 Unspecified atrial flutter (principal); D61.818 Other pancytopenia; I35.0 Nonrheumatic aortic (valve) stenosis; I20.9 Angina pectoris, unspecified; E11.9 Type 2 diabetes mellitus without complications; Z21 Asymptomatic human immunodeficiency virus [HIV] infection status; Z79.4 Long term (current) use of insulin; Z79.899 Other long term (current) drug therapy
CPT/HCPCS: 36415; 80048; 80076; 80307; 81001; 82607; 82728; 82746; 82947; 83010; 83036; 83540; 83615; 83735; 83880; 84439; 84443; 84484; 85007; 85025; 85027; 85045; 85610; 93005; 93306; 99285; J0153; J1163; J1650; J7120

== ENCOUNTER → 2025-07-11 23:36 | Outpatient (BNV) | payer MEDICAID, SELFPAY | PROVIDERS: Admitting Provider Internal Medicine; Emergency Provider Emergency Medicine; PCP Internal Medicine; Visit Provider Internal Medicine Cardiovascular Disease | DX: I47.10 Supraventricular tachycardia, unspecified (principal) | CPT/HCPCS: 93010 ==

== ENCOUNTER → 2025-07-12 02:49 | Outpatient (BNV) | payer MEDICAID, SELFPAY | PROVIDERS: Admitting Provider Internal Medicine; Emergency Provider Emergency Medicine; PCP Internal Medicine; Visit Provider Nurse Practitioner Family | DX: I48.92 Unspecified atrial flutter (principal); I35.0 Nonrheumatic aortic (valve) stenosis | CPT/HCPCS: 99223; 99232; 99239 ==

== ENCOUNTER → 2025-07-12 02:49 | Outpatient (BNV) | payer MEDICAID, SELFPAY | PROVIDERS: Admitting Provider Internal Medicine; Emergency Provider Emergency Medicine; PCP Internal Medicine; Visit Provider Internal Medicine Cardiovascular Disease | DX: I48.92 Unspecified atrial flutter (principal); I35.0 Nonrheumatic aortic (valve) stenosis; I51.7 Cardiomegaly; I34.0 Nonrheumatic mitral (valve) insufficiency; I27.20 Pulmonary hypertension, unspecified; R94.31 Abnormal electrocardiogram [ECG] [EKG] | CPT/HCPCS: 93010; 93306; 99223 ==